=== PATIENT | male | born 1990 | race Caucasian/White ===

== ENCOUNTER 2022-11-24 13:14 | Emergency (ER) | payer MEDICAID ==
[~2022-11-24] VITALS: Ht 175.3 cm; Wt 88.0 kg
[~2022-11-24 13:14] MED LIST: NOCURR
[2022-11-24] MEDS ORDERED: KETAMINE HCL 50 MG/ML 10 ML VIAL ONE (13:15)
[2022-11-24 13:43] LABS: APPEARANCE,URINE CLEAR (CLEAR); BILIRUBIN,URINE NEGATIVE (NEGATIVE); GLUCOSE, URINE (UA) NEGATIVE (NEGATIVE); LEUKOCYTE ESTERASE ,URINE NEGATIVE (NEGATIVE); NITRATE,URINE NEGATIVE (NEGATIVE); OCCULT BLOOD,URINE NEGATIVE (NEGATIVE); PROTEIN,URINE 30-70 mg/dL (NEGATIVE); SPECIFIC GRAVITIY, URINE 1.039 (1.003-1.030); UROBILINOGEN,URINE <=1.0 mg/dL (<=1.0)
[2022-11-24] MEDS ORDERED: KETAMINE HCL 50 MG/ML 10 ML VIAL IM ONE (13:45)
[2022-11-24 13:49] LABS: AMPHET/METH SCREEN,URINE POSITIVE (NEGATIVE); BARBITURATE SCREEN, URINE NEGATIVE (NEGATIVE); BENZODIAZEPINES SCREEN,URINE NEGATIVE (NEGATIVE); CANNABINOID SCREEN,URINE POSITIVE (NEGATIVE); COCAINE SCREEN,URINE NEGATIVE (NEGATIVE); METHADONE SCREEN, URINE NEGATIVE (NEGATIVE); OPIATE SCREEN,URINE NEGATIVE (NEGATIVE); PHENCYCLIDINE SCREEN,URINE NEGATIVE (NEGATIVE)
[2022-11-24 14:00] LABS: BASOPHILS % (AUTO) 0.3 % (0.0-2.0); EOSINOPHILS % (AUTO) 0.8 % (1.0-6.0); HEMATOCRIT 41.7 % (41-53); HEMOGLOBIN 14.3 g/dL (13.5-17.5); LYMPHOCYTES # (AUTO) 1.4 K/uL (1.0-4.8); LYMPHOCYTES % (AUTO) 18.5 % (22.0-44.0); MEAN CORPUSCULAR HGB CONC 34.4 G/dL (31.0-37.0); MEAN CORPUSCULAR VOLUME 90 fL (80-100); MONOCYTES # (AUTO) 0.5 K/uL (0.1-1.0); MONOCYTES % (AUTO) 6.9 % (2.0-9.0); NEUTROPHILS # (AUTO) 5.4 K/uL (1.8-7.7); NEUTROPHILS % (AUTO) 73.5 % (40.0-70.0); PLATELET COUNT (AUTO) 243 K/uL (150-450); RED BLOOD CELL COUNT(AUTO) 4.63 MIL/uL (4.50-5.90); RED CELL DISTRIBUTION WIDTH 12.8 % (11.5-14.5)
[2022-11-24 14:22] LABS: ALANINE AMINOTRANSFERASE 31 U/L (12-78); ALBUMIN 4.8 g/dL (3.4-5.0); ALKALINE PHOSPHATASE 115 U/L (46-116); ANION GAP 15 mmol/L (8-16); ASPARTATE AMINOTRANSFERASE 44 U/L (15-37); CALCIUM, TOTAL 9.3 mg/dL (8.8-10.5); CARBON DIOXIDE 23 mmol/L (22-29); CHLORIDE 104 mmol/L (98-107); CREATININE 1.17 mg/dL (0.60-1.30); GLOMERULAR FILTR. RATE CALC > 60 mL/min (>60); GLUCOSE,RANDOM 98 mg/dL (70-110); SODIUM SERUM 142 mmol/L (136-145); TOTAL PROTEIN, SERUM 8.8 g/dL (6.4-8.2); UREA NITROGEN, BLOOD 19 mg/dL (7-18)
[2022-11-24 14:35] LABS: POTASSIUM 2.8 mmol/L (3.5-5.1)
[2022-11-24 14:36] LABS: SALICYLATE < 2.8 mg/dL (2.8-20.0)
[2022-11-24 14:37] LABS: LACTIC ACID 3.3 mmol/L (0.4-2.0)
[2022-11-24] MEDS ORDERED: SODIUM CHLORIDE 0.9% 1,000 ML IV ONE (14:45)
[2022-11-24] MEDS: POTASSIUM CHL 10 MEQ/WATER 50 ML IV SCH ×2 (15:05→15:44)
[2022-11-24 15:24] VITALS: BP 119/67
[2022-11-24 15:52] LABS: CREATINE KINASE, TOTAL ONLY 718 U/L (39-308); LIPASE 93 U/L (73-393)
[2022-11-24 15:54] LABS: ACETAMINOPHEN < 2 mcg/mL (10-30)
[2022-11-24] MEDS ORDERED: POTASSIUM CHLORIDE 20 MEQ ER TABLET PO ONE (16:00)
== END 2022-11-24 17:16 ==
LOC: EDBD 13:15 → EMS 13:15 → MERGE 13:15 → EMS 17:16
DX: F15.10 Other stimulant abuse, uncomplicated (principal); E87.6 Hypokalemia; Z98.890 Other specified postprocedural states
CPT/HCPCS: 99291; 96365; 70450; 96361; 80053; 81003; 82550; 82962; 83605; 83690; 84484; 85025; 36415; 96372; 80307 ×2; G0480; J3490; J3480; J7030; 51702; G0481